=== PATIENT | female | born 2000 | race Caucasian/White ===

== ENCOUNTER 2019-05-16 16:36 | Emergency (ER) | payer OTHER ==
[~2019-05-16] VITALS: Ht 160 cm; Wt 109.8 kg
[2019-05-16 17:03] VITALS: BP 118/87; Ht 160 cm; Wt 109.8 kg
== END 2019-05-16 19:06 | disposition home or self-care (01) ==
LOC: ED 16:36
DX: S61.301A Unspecified open wound of left index finger with damage to nail, initial encounter (principal); S61.331A Puncture wound without foreign body of left index finger with damage to nail, initial encounter; W54.0XXA Bitten by dog, initial encounter; Y93.89 Activity, other specified; Y92.89 Other specified places as the place of occurrence of the external cause; Y99.8 Other external cause status
CPT/HCPCS: 90715